=== PATIENT | female | born 1975 | race Caucasian/White ===

== ENCOUNTER 2016-10-29 05:35 | Emergency (ER) | payer OTHER ==
[~2016-10-29] VITALS: Ht 157.4 cm; Wt 81.6 kg
[~2016-10-29 05:35] MED LIST: ASMANEX220 MC2 INH; ATIVAN; ATIVAN0.5 MG PO; ATIVAN1 MG PO; KEFLEX500 MG PO; LIDEX0.05% T; MOTRIN800 MG PO; MULTIVITAMIN1 TA1 PO; PANTOPRAZOLE SO40 MG PO; PRENATAL1 TA1 PO; PRILOSEC20 MG PO; PROMETRIUM100 MG R; SINGULAIR10 MG PO; VENLAFAXINE HY150 M2 PO; ZOFRAN ODT4 MG SL; ZOLOFT50 MG PO
[2016-10-29] MEDS ORDERED: Orphenadrine C100 MG PO (07:17)
[2016-10-29] MEDS ORDERED: PREDNISONE10 MG PO (07:17)
[2016-10-29] MEDS ORDERED: HYDROCODONE BIT1 T11 PO (07:17)
== END 2016-10-29 08:53 | disposition home or self-care (01) ==
LOC: ED 05:35
DX: M54.12 Radiculopathy, cervical region (principal); G43.909 Migraine, unspecified, not intractable, without status migrainosus; Z88.1 Allergy status to other antibiotic agents; Z88.6 Allergy status to analgesic agent; V89.2XXA Person injured in unspecified motor-vehicle accident, traffic, initial encounter; Y93.89 Activity, other specified; Y92.413 State road as the place of occurrence of the external cause; Y99.9 Unspecified external cause status

== ENCOUNTER 2016-11-09 18:41 | Emergency (ER) | payer OTHER ==
[~2016-11-09] VITALS: Ht 157.4 cm; Wt 81.6 kg
[~2016-11-09 18:41] MED LIST changes: +HYDROCODONE BIT1 T11 PO; +Orphenadrine C100 MG PO; +PREDNISONE10 MG PO
[2016-11-09] MEDS ORDERED: VOLTAREN11 T (20:02)
== END 2016-11-09 20:12 | disposition home or self-care (01) ==
LOC: ED 18:41
DX: M54.12 Radiculopathy, cervical region (principal); Z88.1 Allergy status to other antibiotic agents; Z88.8 Allergy status to other drugs, medicaments and biological substances; Z79.899 Other long term (current) drug therapy

== ENCOUNTER → 2019-05-29 | Outpatient (CLI) | payer OTHER ==
[~2019-05-29] MED LIST changes: +VOLTAREN11 T
== END | disposition home or self-care (01) ==
LOC: RAD 14:14
DX: M25.562 Pain in left knee (principal); M79.605 Pain in left leg

== ENCOUNTER → 2019-06-23 | Outpatient (CLI) | payer OTHER | END | disposition home or self-care (01) | LOC: ORTHO 00:41 | DX: M23.51 Chronic instability of knee, right knee (principal) ==

== ENCOUNTER 2021-01-26 19:59 | Emergency (ER) | payer OTHER ==
[~2021-01-26] VITALS: Ht 157.4 cm; Wt 108.9 kg
[2021-01-26] MEDS ORDERED: MUCINEX D ER 61 EACH PO (20:41)
[2021-01-26] MEDS ORDERED: EFFEXOR XR150 MG PO (20:41)
[2021-01-26] MEDS ORDERED: PROTONIX20 MG PO (20:42)
[2021-01-26] MEDS ORDERED: VITAMIN D310 MC3 PO (20:42)
[2021-01-26] MEDS ORDERED: LISINOPRIL20 MG PO (20:42)
[2021-01-26] MEDS ORDERED: CETIRIZINE10 MG PO (20:43)
[2021-01-26] MEDS ORDERED: TROKENDI XR50 M1 PO (20:44)
[2021-01-27 00:15] LABS: BASO # 0.1 10*3/uL (0.0-0.1); BASO % 0.6 % (0.0-1.0); EOS # 0.4 10*3/uL (0.0-0.4); EOS % 3.2 % (1.0-4.0); HEMATOCRIT 34.5 % (37.0-47.0); LYMPH # 3.7 10*3/uL (1.3-4.4); LYMPH % 29.7 % (27.0-41.0); MEAN CELL VOLUME 86.5 fl (81.0-99.0); MEAN CORPUSCULAR HGB 28.1 pg (27.0-31.0); MEAN CORPUSCULAR HGB CONC 32.5 g/dl (33.0-37.0); MEAN PLATELET VOLUME 8.3 fl (9.6-12.3); MONO # 0.9 10*3/uL (0.1-1.0); NEUT # 7.3 10*3/uL (2.3-7.9); NEUT % 58.6 % (47.0-73.0); PLATELET COUNT AUTOMATED 346 10*3/uL (130-400); RED BLOOD COUNT 3.99 10*6/uL (4.10-5.10); RED CELL DISTRI WIDTH 13.7 % (0-14.5); WHITE BLOOD COUNT 12.4 10*3/uL (4.8-10.8)
[2021-01-27 00:31] LABS: ALBUMIN 3.2 gm/dl (3.1-4.5); ALKALINE PHOSPHATASE 58 U/L (45-117); BUN 12 mg/dl (7-24); CHLORIDE 110 mmol/L (98-107); CREATININE 0.91 mg/dL (0.55-1.02); POTASSIUM 3.4 mmol/L (3.5-5.1); SGOT/AST 12 IU/L (3-35); SGPT/ALT 21 U/L (12-78); SODIUM 140 mmol/L (136-145); TOTAL PROTEIN 6.5 gm/dL (6.4-8.2)
== END 2021-01-27 03:56 | disposition home or self-care (01) ==
LOC: ED 19:59
PROVIDERS: Emergency Medicine
DX: G43.909 Migraine, unspecified, not intractable, without status migrainosus (principal)

== ENCOUNTER 2021-04-06 15:04 | Emergency (ER) | payer OTHER ==
[~2021-04-06 15:04] MED LIST changes: +CETIRIZINE10 MG PO; +EFFEXOR XR150 MG PO; +LISINOPRIL20 MG PO; +MUCINEX D ER 61 EACH PO; +PROTONIX20 MG PO; +TROKENDI XR50 M1 PO; +VITAMIN D310 MC3 PO
[2021-04-06] MEDS ORDERED: VIBRAMYCIN HYC100 MG PO (20:41)
[2021-04-06] MEDS ORDERED: PREDNISONE20 M1 PO (21:37)
[2021-04-06] MEDS ORDERED: PROVENTIL HFA6.7 GM INH (21:37)
== END 2021-04-06 22:40 | disposition home or self-care (01) ==
LOC: ED 15:04
DX: J40 Bronchitis, not specified as acute or chronic (principal)

== ENCOUNTER → 2021-05-02 | Outpatient (CLI) | payer OTHER ==
[~2021-05-02] MED LIST changes: +PREDNISONE20 M1 PO; +PROVENTIL HFA6.7 GM INH; +VIBRAMYCIN HYC100 MG PO
== END | disposition home or self-care (01) ==
LOC: COVID19 16:47
PROVIDERS: ATTEND Family Medicine
DX: U07.1 COVID-19 (principal)

== ENCOUNTER → 2022-01-09 | Outpatient (CLI) | payer OTHER ==
[2022-01-09 18:02] LABS: BASO # 0.1 10*3/uL (0.0-0.1); BASO % 0.7 % (0.0-1.0); EOS # 0.9 10*3/uL (0.0-0.4); HEMATOCRIT 37.4 % (37.0-47.0); LYMPH # 3.6 10*3/uL (1.3-4.4); LYMPH % 29.6 % (27.0-41.0); MEAN CELL VOLUME 83.7 fl (81.0-99.0); MEAN CORPUSCULAR HGB 27.7 pg (27.0-31.0); MEAN CORPUSCULAR HGB CONC 33.2 g/dl (33.0-37.0); MEAN PLATELET VOLUME 8.4 fl (9.6-12.3); MONO # 0.7 10*3/uL (0.1-1.0); MONO % 5.5 % (3.0-9.0); NEUT # 6.9 10*3/uL (2.3-7.9); NEUT % 56.1 % (47.0-73.0); PLATELET COUNT AUTOMATED 396 10*3/uL (130-400); RED BLOOD COUNT 4.47 10*6/uL (4.10-5.10); RED CELL DISTRI WIDTH 13.9 % (0-14.5); WHITE BLOOD COUNT 12.2 10*3/uL (4.8-10.8)
[2022-01-09 18:19] LABS: ALKALINE PHOSPHATASE 81 U/L (45-117); BUN 12 mg/dl (7-24); CHLORIDE 115 mmol/L (98-107); CREATININE 0.99 mg/dL (0.55-1.02); POTASSIUM 3.6 mmol/L (3.5-5.1); SGOT/AST 11 IU/L (3-35); SGPT/ALT 21 U/L (12-78); SODIUM 145 mmol/L (136-145)
== END | disposition home or self-care (01) ==
LOC: LAB 17:28
PROVIDERS: ATTEND Student in an Organized Health Care Education/Training Program
DX: R10.9 Unspecified abdominal pain (principal)

== ENCOUNTER → 2022-01-12 | Outpatient (CLI) | payer OTHER ==
[~2022-01-12] MED LIST changes: +ONDANSETRON4 MG SL
== END | disposition home or self-care (01) ==
LOC: LAB 14:12
PROVIDERS: ATTEND Student in an Organized Health Care Education/Training Program
DX: R10.9 Unspecified abdominal pain (principal)

== ENCOUNTER → 2022-01-13 | Outpatient (CLI) | payer OTHER ==
[~2022-01-13] MED LIST changes: -ONDANSETRON4 MG SL
[2022-01-13 16:54] LABS: BASO # 0.1 10*3/uL (0.0-0.1); BASO % 0.6 % (0.0-1.0); EOS # 0.9 10*3/uL (0.0-0.4); EOS % 6.9 % (1.0-4.0); HEMATOCRIT 35.5 % (37.0-47.0); LYMPH # 3.4 10*3/uL (1.3-4.4); LYMPH % 27.4 % (27.0-41.0); MEAN CELL VOLUME 85.3 fl (81.0-99.0); MEAN CORPUSCULAR HGB 27.6 pg (27.0-31.0); MEAN CORPUSCULAR HGB CONC 32.4 g/dl (33.0-37.0); MEAN PLATELET VOLUME 8.2 fl (9.6-12.3); MONO # 0.7 10*3/uL (0.1-1.0); MONO % 5.4 % (3.0-9.0); NEUT # 7.2 10*3/uL (2.3-7.9); NEUT % 58.6 % (47.0-73.0); PLATELET COUNT AUTOMATED 360 10*3/uL (130-400); RED BLOOD COUNT 4.16 10*6/uL (4.10-5.10); RED CELL DISTRI WIDTH 14.3 % (0-14.5); WHITE BLOOD COUNT 12.3 10*3/uL (4.8-10.8)
== END | disposition home or self-care (01) ==
LOC: LAB 16:39
PROVIDERS: Student in an Organized Health Care Education/Training Program; ATTEND Family Medicine
DX: R10.84 Generalized abdominal pain (principal)

== ENCOUNTER 2022-01-18 10:50 | Emergency (ER) | payer OTHER ==
[~2022-01-18] VITALS: Ht 157.4 cm; Wt 113.4 kg
[2022-01-18 11:36] LABS: BASO # 0.1 10*3/uL (0.0-0.1); BASO % 0.5 % (0.0-1.0); EOS # 0.7 10*3/uL (0.0-0.4); EOS % 5.3 % (1.0-4.0); LYMPH % 24.7 % (27.0-41.0); MEAN CELL VOLUME 84.7 fl (81.0-99.0); MEAN CORPUSCULAR HGB 27.2 pg (27.0-31.0); MEAN CORPUSCULAR HGB CONC 32.2 g/dl (33.0-37.0); MEAN PLATELET VOLUME 8.4 fl (9.6-12.3); MONO # 0.8 10*3/uL (0.1-1.0); MONO % 6.7 % (3.0-9.0); NEUT # 7.5 10*3/uL (2.3-7.9); NEUT % 61.9 % (47.0-73.0); PLATELET COUNT AUTOMATED 366 10*3/uL (130-400); RED BLOOD COUNT 4.37 10*6/uL (4.10-5.10); RED CELL DISTRI WIDTH 14.2 % (0-14.5); WHITE BLOOD COUNT 12.2 10*3/uL (4.8-10.8)
[2022-01-18 11:46] LABS: BILIRUBIN Negative (Negative); BLOOD Negative (Negative); CLARITY Clear (Clear); COLOR Yellow (Yellow); GLUCOSE Negative (Negative); KETONE Trace (Negative); LEUKO ESTERASE Negative (Negative); NITRITE Negative (Negative); PH 5.5 (4.5-8.0); SPECIFIC GRAVITY >= 1.030 (1.001-1.030)
[2022-01-18 11:54] LABS: ALKALINE PHOSPHATASE 74 U/L (45-117); BUN 12 mg/dl (7-24); CHLORIDE 113 mmol/L (98-107); CREATININE 0.92 mg/dL (0.55-1.02); LIPASE 188 U/L (73-393); POTASSIUM 4.1 mmol/L (3.5-5.1); SGOT/AST 10 IU/L (3-35); SGPT/ALT 22 U/L (12-78); SODIUM 142 mmol/L (136-145); TOTAL PROTEIN 6.6 gm/dL (6.4-8.2)
[2022-01-18 12:00] LABS: BACTERIA 1+; CALCIUM OXALATE CRYSTALS 1+; MUCOUS 1+
[2022-01-18] MEDS ORDERED: ONDANSETRON4 MG SL (13:25)
== END 2022-01-18 13:31 | disposition home or self-care (01) ==
LOC: ED 10:50
PROVIDERS: Nurse Practitioner Family
DX: A08.4 Viral intestinal infection, unspecified (principal); Z88.1 Allergy status to other antibiotic agents; Z88.8 Allergy status to other drugs, medicaments and biological substances; Z79.899 Other long term (current) drug therapy

== ENCOUNTER → 2023-02-17 | Outpatient (CLI) | payer OTHER ==
[~2023-02-17] MED LIST changes: +ONDANSETRON4 MG SL
== END | disposition home or self-care (01) ==
LOC: MRI 15:00
PROVIDERS: ATTEND Family Medicine
DX: E34.8 Other specified endocrine disorders (principal); G43.909 Migraine, unspecified, not intractable, without status migrainosus; M27.40 Unspecified cyst of jaw

== ENCOUNTER → 2023-03-17 | Outpatient (CLI) | payer OTHER | END | disposition home or self-care (01) | LOC: MRI 01:29 | PROVIDERS: ATTEND Student in an Organized Health Care Education/Training Program | DX: E34.8 Other specified endocrine disorders (principal); J34.1 Cyst and mucocele of nose and nasal sinus ==